=== PATIENT | female | born 1995 | race American Indian/Alaskan Native ===

== ENCOUNTER 2020-05-01 14:38 | Emergency (ER) | payer OTHER ==
--- NOTE | 2020-05-01 15:13 | Emergency Department Report ---
ED Female HPI - General Chief complaint: Vaginal Bleeding Stated complaint: MISCARRIAGE/4WKS PREG? Time Seen by Provider: 05/01/20 14:49 Source: patient Mode of arrival: Ambulatory Limitations: No Limitations - History of Present Illness Initial comments: 25-year-old female with no significant past medical history presents to the ER today complaint of vaginal bleeding. Patient states that she took a home test a few days ago and it was positive. She states that she started with vaginal bleeding about 4 days ago. She describes it as heavier than her normal period. She states on average she has been changing 5-6 pads per day. She describes that bright red blood, with small amount of clots. She denies abnormal vaginal discharge or any passage of any abnormal tissue. She reports associated intermittent lower abdominal cramping. She denies any UTI symptoms, back pain, fever or chills. She states her last menstrual cycle was March 25, 2020. She is Ab1. Complaint: vaginal bleeding, other (+ home test) -: Sudden, days(s) (4) - Related Data Allergies Allergy/AdvReac Type Severity Reaction Status Date / Time No Known Allergies Allergy Unverified 05/01/20 14:47 ED Review of Systems ROS: Stated complaint: MISCARRIAGE/4WKS PREG? Other details as noted in HPI ED Past Medical Hx - Past Medical History Previous Medical History?: No - Surgical History Past Surgical History?: No - Social History Smoking Status: Never Smoker Substance Use Type: None ED Physical Exam - General Limitations: No Limitations ED Course Vital Signs 05/01/20 14:44 Temperature 98.3 F Pulse Rate 89 Respiratory 16 Rate Blood Pressure 135/68 O2 Sat by Pulse 100 Oximetry ED Medical Decision Making - Lab Data Result diagrams: 05/01/20 15:21 05/01/20 15:21 - Radiology Data Radiology results: report reviewed [facility] [address] [place] [address] Ultrasound Report Signed Patient: JOSE WILSON MR#: [id number] : 1995 Acct:[id number] Age/Sex: 25 / F ADM Date: 05/01/20 Loc: ED Attending Dr: Ordering Physician: ONELIA DEVINE Date of Service: 05/01/20 Procedure(s): US transvaginal Accession Number(s): [id number] cc: ONELIA DEVINE Of the ultrasound and transvaginal ultrasound INDICATION: Vaginal bleeding FINDINGS: Right ovary measures 3.4 x 1.7 x 2.4 cm. Left ovary measures 3.2 x 1.7 x 1.6 cm. Uterus measures 8.9 x 3.8 x 5.5 cm. Endometrium 7 mm. No IUP is identified. IMPRESSION: No intrauterine is identified. Findings could represent very early or foraminal patency. Correlation with quantitative hCG and follow-up. Signer Name: Erick Apple MD Signed: 05/01/2020 6:55 PM Workstation Name: [id number] Transcribed By: TWILA Dictated By: PARISA APPLE MD Electronically Authenticated By: PARISA APPLE MD Signed Date/Time: 05/01/201854 DD/ 52 TD/TT: - Medical Decision Making 25-year-old female with no significant past medical history presents to the ER today complaint of vaginal bleeding. Patient states that she took a home test a few days ago and it was positive. She states that she started with vaginal bleeding about 4 days ago. She describes it as heavier than her normal period. She states on average she has been changing 5-6 pads per day. She describes that bright red blood, with small amount of clots. She denies abnormal vaginal discharge or any passage of any abnormal tissue. She reports associated intermittent lower abdominal cramping. She denies any UTI symptoms, back pain, fever or chills. She states her last menstrual cycle was March 25, 2020. She is Ab1. CBC and CMP reviewed and unremarkable. Patient quant hCG is only 7.24. Ultrasound shows No intrauterine is identified. Findings could represe nt very early or foraminal patency. Correlation with quantitative hCG and follow-up. Urinalysis reviewed, she does 25 WBCs, greater than 182 red cells likely secondary to her vaginal bleeding but she does not have nitrites, leukocytes and no bacteria. However RhoGam work-up also shows that she is O- and so she is a candidate for RhoGam which she was receiving the ER today. Discussed the results with patient, and discussed the diagnosis of threatened miscarriage with patient. Recommend that she follows up with her [facility] in 2 to 3 days for repeat quant to see if it is dropping. If it is dropping she is likely having a miscarriage, but informed her that there is also a chance that the numbers could go up suggesting progression of the . Patient expressed understanding of instructions and agree with plan. This sitting comfortably, is not in any acute pain distress, she is not toxic or ill- appearing and she reports no worsening bleeding since she has been in the ER. She has a soft nonsurgical abdominal exam. Patient was stable at time of discharge. Critical care attestation.: If time is entered above; I have spent that time in minutes in the direct care of this critically ill patient, excluding procedure time. ED Disposition Clinical Impression: Threatened miscarriage Disposition: DC- TO HOME OR SELFCARE Is pt being admited?: No Does the pt Need Aspirin: No Condition: Stable Instructions: Threatened Miscarriage Additional Instructions: Follow-up with your [facility] in the next 2 to 3 days for repeat ultrasound and quant hCG. You can take Tylenol as needed for pain. Return to the ER if your symptoms changes or worsens in any way. Referrals: [facility] [Provider Group] - 2-3 Days Forms: Work/School Release Form(ED) Time of Disposition: 19:20
[2020-05-01 15:44] LABS: Basophils # (Auto) 0.1 K/mm3 (0.0-0.1); Basophils % (Auto) 1.2 % (0.0-1.8); Eosinophils # (Auto) 0.1 K/mm3 (0.0-0.4); Eosinophils % (Auto) 0.7 % (0.0-4.3); Hemoglobin 14.8 gm/dl (10.1-14.3); Lymphocytes # (Auto) 2.6 K/mm3 (1.2-5.4); Lymphocytes % (Auto) 34.6 % (13.4-35.0); Mean Corpuscular HGB Conc 35 % (30-34); Mean Corpuscular Volume 93 fl (79-97); Monocytes # (Auto) 0.6 K/mm3 (0.0-0.8); Monocytes % (Auto) 8.2 % (0.0-7.3); Platelet Count 268 K/mm3 (140-440); Red Blood Count 4.62 M/mm3 (3.65-5.03); Red Cell Distribution Width 13.7 % (13.2-15.2)
[2020-05-01 16:05] LABS: Alanine Aminotransferase 27 units/L (7-56); Albumin 4.6 g/dL (3.9-5); BUN/Creatinine Ratio 24; Blood Urea Nitrogen 17 mg/dL (7-17); Calcium 9.6 mg/dL (8.4-10.2); Hemolysis Index 6
[2020-05-01 17:00] LABS: Bilirubin,Urine NEG (Negative); Blood,Urine LG (Negative); Color,Urine Red (Yellow); Mucus,Urine 3+ /HPF; Urobilinogen,Urine < 2.0 mg/dL (<2.0)
[2020-05-01 17:01] LABS: RBC,Urine > 182.0 /HPF (0.0-6.0)
--- NOTE | 2020-05-01 18:59 | Ultrasound Report ---
Of the ultrasound and transvaginal ultrasound INDICATION: Vaginal bleeding FINDINGS: Right ovary measures 3.4 x 1.7 x 2.4 cm. Left ovary measures 3.2 x 1.7 x 1.6 cm. Uterus frank sures 8.9 x 3.8 x 5.5 cm. Endometrium 7 mm. No IUP is identified. IMPRESSION: No intrauterine is identified. Findings could represent very early or foraminal p atency. Correlation with quantitative hCG and follow-up. Signer Name: Erick Snow MD Signed: 05/01/2020 6:55 PM Workstation Name: [id number]
[2020-05-01 22:03] VITALS: BP 102/64
== END 2020-05-01 22:05 | disposition home or self-care (01) ==
LOC: ED 14:38
DX: O20.0 Threatened abortion (principal); Z3A.01 Less than 8 weeks gestation of pregnancy
CPT/HCPCS: 36415; 76801; 76830; 80053; 81001; 84702; 84703; 85025; 85460; 85461; 86850; 86900; 86901; 87086; 96372; 99284; J2790